=== PATIENT | female | born 1955 | race Caucasian/White ===

== ENCOUNTER 2018-03-14 14:36 | Day surgery (SDC) | payer OTHER ==
[2018-03-14] MEDS ORDERED: FENTAnyl 50 MCG/ML VIAL (16:23)
[2018-03-14] MEDS ORDERED: MIDAZOLAM 1 MG/ML 2 ML INJ ×2 (16:23→17:41)
[2018-03-14] MEDS ORDERED: ROPIVACAINE 0.5 % 30 ML VIAL ×3 (16:24→19:27)
[2018-03-14] MEDS ORDERED: morphine 2 MG INJ IV (18:00)
[2018-03-14] MEDS: POLYMYXIN/BACITRACIN 1L IRRIG (18:23)
[2018-03-14] MEDS ORDERED: NEOSTIGMINE 3 MG/3 ML SYRINGE (19:26)
[2018-03-14] MEDS ORDERED: ETOMIDATE 20 MG INJ (19:26)
[2018-03-14] MEDS ORDERED: CEFAZOLIN 1 GM INJ (19:26)
[2018-03-14] MEDS ORDERED: ROCURONIUM 50 MG INJ (19:26)
[2018-03-14] MEDS ORDERED: LIDOCAINE 2% (SDV) 5 ML INJ (19:26)
[2018-03-14] MEDS ORDERED: GLYCOPYRROLATE 0.4 MG INJ (19:26)
[2018-03-14] MEDS: BACITRACIN/POLYMYXIN 28.35 GM OINT TOP (19:40)
[2018-03-14] MEDS ORDERED: NALOXONE (0.4 MG/ML) INJ IV (20:00)
[2018-03-14] MEDS ORDERED: METOCLOPRAMIDE 10 MG INJ IV (20:00)
[2018-03-14] MEDS ORDERED: MEPERIDINE 25 MG INJ IV (20:00)
[2018-03-14] MEDS ORDERED: FENTAnyl 50 MCG/ML VIAL IV (20:00)
[2018-03-14] MEDS ORDERED: DIPHENHYDRAMINE 50 MG INJ IV (20:00)
[2018-03-14] MEDS ORDERED: ONDANSETRON 4 MG INJ IV (20:00)
[2018-03-14] MEDS ORDERED: HYDROmorphONE (0.2 MG/ML) 10ML SYG IV ×2 (20:00)
== END 2018-03-14 21:11 | disposition home or self-care (01) ==
LOC: SDS 14:36
DX: S82.52XD Displaced fracture of medial malleolus of left tibia, subsequent encounter for closed fracture with routine healing (principal); X58.XXXD Exposure to other specified factors, subsequent encounter; I10 Essential (primary) hypertension
CPT/HCPCS: 27766; 73610; 82306